=== PATIENT | male | born 1995 | race Hispanic/Latino ===

== ENCOUNTER 2020-10-11 08:20 | Emergency (ER) | payer OTHER, SELFPAY ==
[~2020-10-11] VITALS: Ht 177.8 cm; Wt 95.3 kg
[2020-10-11 08:57] LABS: BASOPHILS % (AUTO) 0.5 % (0.0-5.0); HEMATOCRIT 43.3 % (42-54); MEAN CORPUSCULAR HEMOGLOBIN 29.8 pg (27.0-33.0); MEAN CORPUSCULAR HGB CONC 34.9 g/dL (32.0-36.0); MEAN CORPUSCULAR VOLUME 85.4 fL (79-99); MONOCYTES % (AUTO) 6.7 % (3.0-13.0); NEUTROPHILS % (AUTO) 62.4 % (40.0-77.0); PLATELET COUNT (AUTO) 185 K/uL (130-400); RED BLOOD CELL COUNT(AUTO) 5.07 MIL/uL (4.50-6.20); RED CELL DISTRIBUTION WIDTH 11.9 % (11.0-15.5); WHITE BLOOD COUNT (AUTO) 7.3 K/uL (4.8-10.8)
[2020-10-11] MEDS ORDERED: KETOROLAC 30MG VIAL (30MG/ML) IV ONE (09:00)
[2020-10-11] MEDS ORDERED: FAMOTIDINE 20MG VIAL IV ONE (09:00)
[2020-10-11 09:06] LABS: INR 0.97 (0.85-1.15); PROTHROMBIN TIME 10.6 SEC (9.6-11.6)
[2020-10-11 09:07] LABS: PARTIAL THROMBOPLASTIN TIME 24.6 SEC (26.3-35.5)
[2020-10-11 09:09] LABS: B-TYPE NATRIURETIC PEPTIDE 42 pg/mL (0-100)
[2020-10-11 09:10] LABS: ALBUMIN 3.8 g/dL (3.5-5.0); BILIRUBIN,TOTAL 0.2 mg/dL (0.2-1.0); POTASSIUM 3.8 mmol/L (3.5-5.1)
[2020-10-11] MEDS: SUCRALFATE 1 GM TABLET PO SCH ×2 (09:45→09:46)
[2020-10-11 09:55] LABS: APPEARANCE,URINE Clear (CLEAR); BILIRUBIN,URINE Negative (NEGATIVE); COLOR,URINE Yellow (YELLOW); GLUCOSE, URINE (UA) Negative (NEGATIVE); KETONES,URINE Negative (NEGATIVE); LEUKOCYTE ESTERASE ,URINE Negative (NEGATIVE); NITRATE,URINE Negative (NEGATIVE); OCCULT BLOOD,URINE Negative (NEGATIVE); PROTEIN,URINE Negative (NEGATIVE); UROBILINOGEN,URINE 0.2 mg/dL (0.2-1.0)
[2020-10-11 10:39] VITALS: BP 104/46
[2020-10-11] MEDS ORDERED: LIDOCAINE HCL 2% VISCOUS 15 ML UDCUP ONE (10:53)
[2020-10-11] MEDS ORDERED: MAGNESIUM HYDROXIDE 30 ML/UDCUP ONE (10:53)
[2020-10-11] MEDS ORDERED: MAG/ALUM/SIMETH 30 ML UDCUP PO ONE (11:00)
[2020-10-11] MEDS ORDERED: PANT40TA55 PO (11:02)
[2020-10-11] MEDS ORDERED: ONDA4TAB10 PO (11:04)
[2020-10-11 11:54] VITALS: BP 114/75
== END 2020-10-11 12:59 | disposition home or self-care (01) ==
LOC: EDH 08:20
DX: R07.89 Other chest pain (principal); R11.2 Nausea with vomiting, unspecified; R10.13 Epigastric pain; Z20.822 Contact with and (suspected) exposure to COVID-19; E78.00 Pure hypercholesterolemia, unspecified; Z79.1 Long term (current) use of non-steroidal anti-inflammatories (NSAID); Z79.899 Other long term (current) drug therapy; Z87.891 Personal history of nicotine dependence; Z89.512 Acquired absence of left leg below knee
CPT/HCPCS: 36415; 71045; 80053; 81003; 82550; 83690; 83880; 84484; 85025; 85378; 85610; 85730; 87635; 87804 ×2; 93005; 96374; 96375; 99285; C9803; J1885; J3490

== ENCOUNTER 2021-12-05 03:16 | Emergency (ER) | payer OTHER ==
[~2021-12-05] VITALS: Ht 167.6 cm; Wt 81.6 kg
[~2021-12-05 03:16] MED LIST: ONDA4TAB10 PO; PANT40TA55 PO
[2021-12-05] MEDS ORDERED: CYCL-309 PO (05:44)
[2021-12-05] MEDS ORDERED: IBUP-1493 PO (05:44)
[2021-12-05 06:14] VITALS: BP 139/63
== END 2021-12-05 06:24 | disposition home or self-care (01) ==
LOC: EDH 03:16
DX: M54.2 Cervicalgia (principal); Z79.899 Other long term (current) drug therapy; Z98.890 Other specified postprocedural states; V49.59XA Passenger injured in collision with other motor vehicles in traffic accident, initial encounter; Y93.89 Activity, other specified; Y92.413 State road as the place of occurrence of the external cause; Y99.8 Other external cause status
CPT/HCPCS: 70450; 72125; 73030